=== PATIENT | male | born 1945 | race Caucasian/White ===

== ENCOUNTER → 2017-03-21 | Outpatient (CLI) | payer MEDICARE ==
[2017-03-21 09:08] LABS: Blood Urea Nitrogen 15 mg/dL (9-20); Non-African American GFR(MDRD) >60 (>60 ml/min/1.73 sqM)
--- NOTE | 2017-03-21 10:27 | CT ---
EXAMINATION TYPE: CT chest w con DATE OF EXAM: 03/21/2017 COMPARISON: NONE HISTORY: Abnormal findings of the lung field CT DLP: 441.00 mGycm, Automated exposure control for dose reduction was used. CONTRAST: Performed injected with 100 ml mL of Omnipaque 300. TECHNIQUE: Axial images were obtained at 5 mm thick sections. Reconstructed images are reviewed on [employer] computer in the coronal plane. FINDINGS: Portion of the thyroid visualized is normal. There is some minimal infiltrate is along the posterior medial right lung base and along the left adeline phragm most likely on the basis of atelectasis. 0.9 cm nodule may be within the posterior medial righ t lung base. Series 3 image 25 lung windows. No enhancement is evident. No enlarged mediastinal or hilar adenopathy is evident. The ascending aorta diameter at the level o f the main pulmonary artery is 3.3 cm. The main pulmonary artery diameter at the bifurcation is 2.[address] sections are obtained through the upper abdomen. There is elevation of the left diaphragm, this could be related to hernia. There is a peripherally enhancing hypodensity within the posterior right upper lobe liver. Series 3 image 53. This could represent a hemangioma. Couple of small hypoden sities are within the superior right lobe liver could be small hepatic cysts. IMPRESSIONS: 1. Hypodense nodule measuring 0.9 cm posterior medial right mid lung. 2. Mild infiltrates at the lung bases most likely on the basis of atelectasis. 3. Suspected herniation into the posterior lateral left lung base. 4. Previously reported hemangioma posterior lateral right upper lobe liver
== END | disposition home or self-care (01) ==
LOC: RADCTMAIN 08:31
PROVIDERS: ATTEND Family Medicine
DX: R91.8 Other nonspecific abnormal finding of lung field (principal); R91.1 Solitary pulmonary nodule
CPT/HCPCS: 82565; 84520; 71260; 36415; Q9967

== ENCOUNTER → 2017-04-24 | Outpatient (CLI) | payer MEDICARE ==
--- NOTE | 2017-04-24 15:09 | MR ---
EXAMINATION TYPE: MR abdomen wo/w con DATE OF EXAM: 04/24/2017 COMPARISON: CT abdomen dated 07/08/2016 HISTORY: abn ct, hepatic hemangioma CONTRAST: Standard multiplanar, multisequence MRI departmental protocol utilizing 15 mL intravenous MultiHance gadolinium contrast. FINDINGS: There is no signal dropout between in phase and out of phase imaging within the hepatic parenchyma. W ithin segment 7 of the liver there is a lobulated T2 hyperintense and T1 hypointense 2.2 x 2.2 x 2.5 cm mass as well as 2 smaller lesions within segment 8 that are T2 hyperintense and T1 hypointense heidi suring 7 mm and 8 mm on series 501 image 38 and 37 respectively. The larger 2.5 cm lesion demonstrate s peripheral nodular discontinuous centripetal enhancement compatible with a benign hemangioma and th e 2 smaller lesions demonstrate no enhancement compatible with benign hepatic cysts. There is chronic left hemidiaphragm elevation and left basilar subsegmental atelectasis noted. Intrat horacic stomach is again noted from a large hiatal hernia. A small splenule is seen adjacent to the n ative spleen. Incidentally noted are punctate T2 hyperintense and T1 hypointense nonenhancing bilater al cortical renal cysts and nonspecific mild bilateral perinephric fat stranding. The renal calculi n oted on the prior exam are better seen on CT. There is no evidence of lymphadenopathy. The adrenal glands and pancreas are unremarkable. Abdominal aorta is of normal course and caliber. Note is made of multiple vertebral body hemangiomas and a mild levoconvex scoliotic curvature of the lumbar spine which may be positional in nature. IMPRESSION: 1. Benign hepatic lesions. Single 2.2 cm hepatic hemangioma and subcentimeter hepatic cysts. 2. Incidentally noted bilateral subcentimeter cortical renal cysts. 3. Benign vertebral body hemangiomas.
== END | disposition home or self-care (01) ==
LOC: RADMRIMAIN 12:57
PROVIDERS: ATTEND Internal Medicine Pulmonary Disease
DX: D18.03 Hemangioma of intra-abdominal structures (principal); K76.89 Other specified diseases of liver; N28.1 Cyst of kidney, acquired; D18.09 Hemangioma of other sites; R93.8 Abnormal findings on diagnostic imaging of other specified body structures
CPT/HCPCS: 74183; A9577

== ENCOUNTER → 2017-08-12 | Outpatient (CLI) | payer MEDICARE ==
--- NOTE | 2017-08-12 08:45 | CT ---
EXAMINATION TYPE: CT chest wo con DATE OF EXAM: 08/12/2017 COMPARISON: 03/21/2017 HISTORY: Pulmonary Nodule CT DLP: 401.3 mGycm. Automated Exposure Control for Dose Reduction was Utilized. TECHNIQUE: CT scan of the thorax is performed without IV contrast. FINDINGS: LUNGS: As described below there is compressive atelectasis at the left lung base secondary to a large hiatal hernia. Additionally similar to the prior exam at the distal aspect of a superior segment rig ht lower lobe pulmonary artery there is a 0.9 x 0.8 x 0.5 cm unchanged low-density solid perifissural pulmonary nodule with distal atelectasis (perifissural location is best demonstrated on series 6 [id number] [id number]). Minimal subsegmental atelectasis is again seen posterior medially within the right lower lobe . No dilated bronchus is seen leading to this nodule to indicate endobronchial obstruction and mucoid impaction. Continued surveillance is recommended. No interval growth from the prior. No new pulmona ry nodules or masses. MEDIASTINUM: Lack of IV contrast is noted to limit evaluation for mediastinal and especially hilar ad enopathy. There are no definitive greater than 1 cm hilar or mediastinal lymph nodes. No cardiomega ly or pericardial effusion is seen. Moderate calcific atheromatous changes are seen of the thoracic a martell. OTHER: Hypoattenuated hepatic lesions representing cysts and previously described hemangiomas are red emonstrated with a hemangioma measuring up to 2.5 cm similar to the prior exam although incompletely evaluated given the lack of intravenous contrast. Bilateral nonobstructing calculi measuring 7 mm in the left upper pole and 3 mm within the right mid to lower pole are unchanged. Largely intrathoracic stomach is again noted. There is also herniation of mesenteric fat through the diaphragmatic resultin g in compressive atelectasis at the left lung base. IMPRESSION: 1. Unchanged superior segment right lower lobe low-density perifissural pulmonary nodule, most likely representing a benign perifissural lymph node. Continued surveillance is recommended to establish lo ng term stability and benignity. CT thorax is recommended in one year. 2. Redemonstration of a benign hepatic hemangioma, benign hepatic cysts, large hiatal hernia. A left basilar subsegmental atelectasis, and bilateral nonobstructing renal calculi.
== END | disposition home or self-care (01) ==
LOC: RADCTMAIN 07:11
PROVIDERS: ATTEND Internal Medicine Pulmonary Disease
DX: J98.11 Atelectasis (principal); R91.1 Solitary pulmonary nodule
CPT/HCPCS: 71250

== ENCOUNTER → 2017-10-29 | Outpatient (CLI) | payer MEDICARE ==
[2017-10-29 17:37] LABS: Basophils # (A) 0.1 k/uL (0-0.2); Basophils % (A) 1 %; Eosinophils # (A) 0.3 k/uL (0-0.7); Eosinophils % (A) 3 %; HGB 14.9 gm/dL (13.0-17.5); Lymphocytes # (A) 2.2 k/uL (1.0-4.8); Lymphocytes % (A) 26 %; MCH 30.1 pg (25.0-35.0); MCHC 32.4 g/dL (31.0-37.0); MCV 92.8 fL (80.0-100.0); Mean Platelet Volume 8.6; Monocytes # (A) 0.5 k/uL (0-1.0); Monocytes % (A) 6 %; Neutrophils # (A) 5.2 k/uL (1.3-7.7); Neutrophils % (A) 61 %; Platelet Count 166 k/uL (150-450); RBC 4.96 m/uL (4.30-5.90); RDW 13.3 % (11.5-15.5); WBC 8.6 k/uL (3.8-10.6)
[2017-10-29 18:11] LABS: ALT 29 U/L (21-72); AST 21 U/L (17-59); Alkaline Phosphatase 66 U/L (38-126); Anion Gap 14 mmol/L; Blood Urea Nitrogen 18 mg/dL (9-20); Carbon Dioxide 24 mmol/L (22-30); Chloride 104 mmol/L (98-107); Glucose 107 mg/dL (74-99); Magnesium 1.9 mg/dL (1.6-2.3); Sodium 142 mmol/L (137-145); Total Bilirubin 0.3 mg/dL (0.2-1.3); Total Protein 6.5 g/dL (6.3-8.2)
== END | disposition home or self-care (01) ==
LOC: LABWHC1 17:04
PROVIDERS: ATTEND Internal Medicine Pulmonary Disease
DX: I47.2 Ventricular tachycardia (principal)
CPT/HCPCS: 36415; 80053; 83735; 84443; 85025

== ENCOUNTER → 2018-07-13 | Outpatient (CLI) | payer MEDICARE ==
--- NOTE | 2018-07-13 11:09 | CT ---
EXAMINATION TYPE: CT chest wo con DATE OF EXAM: 07/13/2018 COMPARISON: 08/12/2017 HISTORY: F/u on pulmonary nodule. Sx hernia, renal stones. CT DLP: 675 mGycm. Automated Exposure Control for Dose Reduction was Utilized. TECHNIQUE: CT scan of the thorax is performed without IV contrast. FINDINGS: LUNGS: There is an approximately 8 x 8 mm right sided pulmonary nodule within the interlobar fissure. Therefore this could represent a true pulmonary nodule or intrafissural lymph node. Focal fibrotic c hanges are seen of the medial right lower lobe and within the left lower lobe is subsegmental atelect asis. There is no pleural effusion or pneumothorax seen. The tracheobronchial tree is patent. MEDIASTINUM: Lack of IV contrast is noted to limit evaluation for mediastinal and especially hilar ad enopathy. There are no definitive greater than 1 cm hilar or mediastinal lymph nodes. There are few prominent but nonenlarged right axillary lymph nodes measuring up to 8 mm in short axis. No cardiome uche or pericardial effusion is seen. Severe coronary artery calcifications are seen within the left anterior descending coronary artery. OTHER: There is an intrathoracic stomach with a large wide necked diaphragmatic defect measuring appr oximately 4.1 cm. Hernia contains nearly the entirety of the stomach as well as portions of the trans verse colon and mesenteric vasculature/fat. There is a 1.0 cm nonobstructing left upper pole renal calculus. Gallbladder is elongated measuring 7 .8 cm. Within segment 6 there is an at least 2.5 x 2.3 cm solid-appearing hepatic lesion. Additional scatter ed hypoattenuated hepatic lesion 5 other smaller hypoattenuated hepatic lesions are seen that are sub centimeter. These appear similar in comparison to the prior of 08/12/2017. These are demonstrated to be benign cysts and a hemangioma on the prior MRI dated 04/24/2017. IMPRESSION: 1. Again there is stability of the low-density probable pulmonary nodule likely representing a. Fissu ral/intrafissural lymph node. 2. Intrathoracic stomach and paraesophageal large hernia containing large bowel, mesenteric fat, and mesenteric vasculature.
== END | disposition home or self-care (01) ==
LOC: RADCTMAIN 09:31
PROVIDERS: ATTEND Internal Medicine Pulmonary Disease
DX: J98.4 Other disorders of lung (principal)
CPT/HCPCS: 71250

== ENCOUNTER → 2019-11-17 | Outpatient (CLI) | payer MEDICARE ==
--- NOTE | 2019-11-17 14:46 | US ---
EXAMINATION TYPE: US thyroid st tissue head/neck DATE OF EXAM: 11/17/2019 COMPARISON: NONE CLINICAL HISTORY: R59.0 enlarged Lymph Nodes. Enlarged lymph node per patient, recently was on antibi otics At area of palpable is the patients submandibular gland = 3.1 x 3.1 x 1.4cm Lymph node just inferior to submandibular gland = 2.3 x 1.2 x 0.6cm, fatty hilum seen IMPRESSION: Normal-appearing right submandibular gland. There is also an adjacent normal-appearing l ymph node. Correlate clinically and if felt to be indicated CT of the neck could be obtained.
[2019-11-17 15:53] LABS: Basophils % (A) 0 %; Eosinophils # (A) 0.1 k/uL (0-0.7); Eosinophils % (A) 2 %; HCT 48.3 % (39.0-53.0); HGB 15.4 gm/dL (13.0-17.5); Lymphocytes # (A) 3.3 k/uL (1.0-4.8); Lymphocytes % (A) 36 %; MCH 29.7 pg (25.0-35.0); Mean Platelet Volume 8.8; Monocytes # (A) 0.4 k/uL (0-1.0); Monocytes % (A) 5 %; Neutrophils # (A) 4.8 k/uL (1.3-7.7); Neutrophils % (A) 54 %; Platelet Count 185 k/uL (150-450); RBC 5.19 m/uL (4.30-5.90)
[2019-11-17 15:55] LABS: ALT 17 U/L (4-49); AST 23 U/L (17-59); African American GFR (CKD) >90 (>60 ml/min/1.73 sqM); Albumin 4.3 g/dL (3.5-5.0); Alkaline Phosphatase 43 U/L (38-126); Anion Gap 8 mmol/L; Blood Urea Nitrogen 16 mg/dL (9-20); Calcium 8.6 mg/dL (8.4-10.2); Carbon Dioxide 25 mmol/L (22-30); Chloride 105 mmol/L (98-107); Glucose 91 mg/dL (74-99); Non-African American GFR(CKD) 85 (>60 ml/min/1.73 sqM); Potassium 4.9 mmol/L (3.5-5.1); Sodium 138 mmol/L (137-145); Total Bilirubin 0.5 mg/dL (0.2-1.3); Total Protein 6.7 g/dL (6.3-8.2)
[2019-11-17 23:43] LABS: Ferritin 258.6 ng/mL (22.0-322.0)
== END | disposition home or self-care (01) ==
LOC: RADUSMAIN 14:08
PROVIDERS: ATTEND Nurse Practitioner
DX: R59.0 Localized enlarged lymph nodes (principal); R53.83 Other fatigue
CPT/HCPCS: 76536; 80053; 82728; 85025

== ENCOUNTER 2021-07-07 12:14 | Observation (INO) | payer MEDICARE ==
--- NOTE | 2021-07-07 13:18 | ED ---
General Adult HPI - General Chief complaint: Urogenital Stated complaint: Kidney stones Time Seen by Provider: 07/07/21 13:17 Source: patient, family Mode of arrival: ambulatory Limitations: no limitations - History of Present Illness Initial comments: Patient presents to the ED with his for evaluation. Patient states that he has had left flank pain radiating to the left side of his abdomen and hematuria for the past 3 days or so. Patient states that he has had associated nausea as well, but he denies vomiting. Patient states that he has a history of renal stones. Patient's states the patient has an appointment scheduled to see a urologist, but it is not until 07/20. Patient's states that she took the patient to see his primary care provider yesterday, and he was given a shot of pain medication, but it wore off overnight, and the patient's pain has returned. Patient denies trauma or injury, fever or chills, headache, focal neuro deficit, chest pain or pressure, dyspnea, cough or cold symptoms, palpitations, dizziness, vomiting, diarrhea or constipation, bloody or melanotic stool, dysuria or urinary frequency, leg pain, or any other symptoms or complaints. Patient states that his pain is currently 9/10 in severity. - Related Data Home Medications Medication Instructions Recorded Confirmed Hyoscyamine Sulfate [Levsin] 0.125 mg PO ONCE PRN 07/09/16 07/26/16 Loperamide HCl [Imodium A-D] 2 mg PO ONCE PRN 07/09/16 07/26/16 Loperamide [Imodium] 4 mg PO ONCE 07/09/16 07/26/16 Simvastatin [Zocor] 40 mg PO HS 07/09/16 07/26/16 Ubiquinol [Co-Veratrol] 100 mg PO DAILY 07/09/16 07/26/16 atenoloL [Tenormin] 25 mg PO DAILY 07/09/16 07/26/16 Ciprofloxacin HCl [Cipro] 500 mg PO Q12HR 07/26/16 07/26/16 Allergies Allergy/AdvReac Type Severity Reaction Status Date / Time No Known Allergies Allergy Verified 07/07/21 12:29 Review of Systems ROS Statement: Those systems with pertinent positive or pertinent negative responses have been documented in the HPI. ROS Other: All systems not noted in ROS Statement are negative. Past Medical History Past Medical History: Hypertension, Renal Disease Additional Past Medical History / Comment(s): kidney stones, History of Any Multi-Drug Resistant Organisms: None Reported Past Surgical History: Back Surgery, Hernia Repair, Orthopedic Surgery, Tonsillectomy Additional Past Surgical History / Comment(s): bilateral renal stent palcement and removal Past Psychological History: No Psychological Hx Reported Smoking Status: Never smoker Past Alcohol Use History: None Reported Past Drug Use History: None Reported General Exam Limitations: no limitations General appearance: alert, in no apparent distress Head exam: Present: atraumatic, normocephalic Eye exam: Present: normal appearance, EOMI ENT exam: Present: mucous membranes moist Neck exam: Present: other (Trachea is in midline) Respiratory exam: Present: normal lung sounds bilaterally. Absent: respiratory distress, wheezes, rales, rhonchi, stridor Cardiovascular Exam: Present: regular rate, normal rhythm, normal heart sounds, other (Normal radial pulses bilaterally) GI/Abdominal exam: Present: soft. Absent: distended, tenderness, guarding Extremities exam: Absent: tenderness, pedal edema, calf tenderness Back exam: Absent: CVA tenderness (R), CVA tenderness (L) Neurological exam: Present: alert, oriented X3. Absent: motor sensory deficit Psychiatric exam: Present: normal affect, normal mood Skin exam: Present: warm, dry, intact, normal color Course Vital Signs 07/07/21 12:26 Temperature 98.7 F Pulse Rate 75 Respiratory 18 Rate Blood Pressure 154/8 O2 Sat by Pulse 95 Oximetry - Reevaluation(s) Reevaluation #1: 07/07/21 14:28 Case, H&P, test results and ED management thus far were discussed with Dr. Hummel (urology). He he recommends/accepts hospital admission. He asks to make the patient NPO after midnight. He has no further recommendations at this time. 07/07/21 14:34 Patient states that his pain as "a lot better" now. Patient denies development of any new symptoms while in the ED. Patient and are aware of the patient's test results and my discussion with Dr. Hummel as above. Patient agrees with hospital admission at this time. Medical Decision Making - Medical Decision Making Patient has symptomatic left ureteral stones seen on CT. Given the large size of the patient's stones, Dr. Hummel has recommended/accepted hospital admission for management of the patient's stones. Patient agrees with hospital admission. Patient's UA does not appear infected. Patient is afebrile. - Lab Data Result diagrams: 07/07/21 13:35 07/07/21 13:35 Lab Results 07/07/21 07/07/21 07/07/21 Range/Units 13:00 13:35 13:35 WBC 14.8 H (3.8-10.6) k/uL RBC 4.67 (4.30-5.90) m/uL Hgb 14.0 (13.0-17.5) gm/dL Hct 42.9 (39.0-53.0) % MCV 91.8 (80.0-100.0) fL MCH 29.9 (25.0-35.0) pg MCHC 32.6 (31.0-37.0) g/dL RDW 13.0 (11.5-15.5) % Plt Count 140 L (150-450) k/uL MPV 8.7 Neutrophils % 73 % Lymphocytes % 19 % Monocytes % 5 % Eosinophils % 1 % Basophils % 0 % Neutrophils # 10.7 H (1.3-7.7) k/uL Lymphocytes # 2.8 (1.0-4.8) k/uL Monocytes # 0.8 (0-1.0) k/uL Eosinophils # 0.1 (0-0.7) k/uL Basophils # 0.1 (0-0.2) k/uL Sodium 134 L (137-145) mmol/L Potassium 4.5 (3.5-5.1) mmol/L Chloride 103 (98-107) mmol/L Carbon Dioxide 21 L (22-30) mmol/L Anion Gap 10 mmol/L BUN 24 H (9-20) mg/dL Creatinine 1.42 H (0.66-1.25) mg/dL Est GFR (CKD-EPI)AfAm 56 (>60 ml/min/1.73 sqM) Est GFR (CKD-EPI)NonAf 48 (>60 ml/min/1.73 sqM) Glucose 114 H (74-99) mg/dL Calcium 8.9 (8.4-10.2) mg/dL Total Bilirubin 0.8 (0.2-1.3) mg/dL AST 23 (17-59) U/L ALT 13 (4-49) U/L Alkaline Phosphatase 61 (38-126) U/L Total Protein 6.4 (6.3-8.2) g/dL Albumin 3.9 (3.5-5.0) g/dL Lipase 110 (23-300) U/L Urine Color Yellow Urine Appearance Clear (Clear) Urine pH 5.0 (5.0-8.0) Ur Specific [place] 1.010 (1.001-1.035) Urine Protein Negative (Negative) Urine Glucose (UA) Negative (Negative) Urine Ketones Negative (Negative) Urine Blood Trace H (Negative) Urine Nitrite Negative (Negative) Urine Bilirubin Negative (Negative) Urine Urobilinogen <2.0 (<2.0) mg/dL Ur Leukocyte Esterase Trace H (Negative) Urine RBC <1 (0-5) /hpf Urine WBC 3 (0-5) /hpf Ur Squamous Epith Cells <1 (0-4) /hpf Hyaline Casts 1 (0-2) /lpf - Radiology Data CT abdomen/pelvis without contrast: 1. There is a 12 mm calculus in the proximal left ureter at the left UPJ resulting in marked hydronephrosis. 2. A second 9.3 mm calculus is seen in the proximal left ureter as well. 3. There is a 17 mm calculus in the urinary bladder. 4. Large hiatal hernia with intrathoracic stomach. 5. Marked prostatic hypertrophy. Disposition Clinical Impression: Ureterolithiasis, Hydronephrosis Disposition: ADMITTED IP TO THIS [facility] Condition: Stable Is patient prescribed a controlled substance at d/c from ED?: No Referrals: Jose Tuttle DO [Primary Care Provider] - 1-2 days Time of Disposition: 14:29
[2021-07-07] MEDS ORDERED: HYDROmorphone 1 MG/ML 1 ML SYRINGE IVP STA (13:23)
[2021-07-07] MEDS ORDERED: ONDANSETRON 4 MG/2 ML VIAL IVP STA (13:23)
[2021-07-07] MEDS ORDERED: SODIUM CHLORIDE 0.9% 500 ML 500 ML IV STA (13:23)
[2021-07-07 13:43] LABS: Basophils # (A) 0.1 k/uL (0-0.2); Basophils % (A) 0 %; Eosinophils # (A) 0.1 k/uL (0-0.7); Eosinophils % (A) 1 %; HCT 42.9 % (39.0-53.0); Lymphocytes # (A) 2.8 k/uL (1.0-4.8); Lymphocytes % (A) 19 %; MCH 29.9 pg (25.0-35.0); MCHC 32.6 g/dL (31.0-37.0); MCV 91.8 fL (80.0-100.0); Mean Platelet Volume 8.7; Monocytes # (A) 0.8 k/uL (0-1.0); Monocytes % (A) 5 %; Neutrophils # (A) 10.7 k/uL (1.3-7.7); Neutrophils % (A) 73 %; Platelet Count 140 k/uL (150-450); RBC 4.67 m/uL (4.30-5.90); WBC 14.8 k/uL (3.8-10.6)
[2021-07-07 14:01] LABS: Albumin 3.9 g/dL (3.5-5.0); Calcium 8.9 mg/dL (8.4-10.2); Potassium 4.5 mmol/L (3.5-5.1); Total Bilirubin 0.8 mg/dL (0.2-1.3); Total Protein 6.4 g/dL (6.3-8.2)
--- NOTE | 2021-07-07 14:04 | CT ---
EXAMINATION TYPE: CT abdomen pelvis wo con DATE OF EXAM: 07/07/2021 COMPARISON: 07/08/2016 HISTORY: Lt flank pain CT DLP: 710 mGycm Automated exposure control for dose reduction was used. TECHNIQUE: Helical acquisition of images was performed from the lung bases through the pelvis. FINDINGS: As noted previously there is an intrathoracic stomach secondary to large hiatal hernia. There is mild bibasilar atelectasis. The gallbladder is normal and there is no biliary ductal dilatation. There few scattered tiny simple hepatic cysts or hemangiomas. The bowel loops are normal in caliber and there is no evidence of obstruction. There is no free intra peritoneal air or fluid. There is a 12 mm calculus in the proximal left ureter at the left UPJ resulting in marked hydronephro sis. A second 9.3 mm calculus is seen in the proximal left ureter as well. There is a 17 mm calcific ation in the urinary bladder. There is prostatic hypertrophy. There is no right renal calculus or hydronephrosis. Caliber of the abdominal aorta is normal and there is no evidence of retroperitoneal adenopathy or he morrhage. There is no organomegaly involving the liver, pancreas, spleen or adrenal glands. There is no pelvic adenopathy. There is marked diverticulosis of the colon without evidence of divert iculitis. The osseous structures are intact.. IMPRESSION: 1. Marked left-sided hydronephrosis secondary to proximal ureteral calcifications as described above. 2. Large urinary bladder calcification. 3. Resolution of the previous right renal and ureteral calcifications. 4. Large hiatal hernia with intrathoracic stomach. 5. Marked prostatic hypertrophy.
[2021-07-07 14:21] LABS: Appearance,Urine Clear (Clear); Bilirubin,Urine Negative (Negative); Blood,Urine Trace (Negative); Color,Urine Yellow; Glucose,Urine (UA) Negative (Negative); Hyaline Casts,Urine 1 /lpf (0-2); Ketones,Urine Negative (Negative); Leukocyte Esterase,Urine Trace (Negative); Nitrite,Urine Negative (Negative); Protein,Urine Negative (Negative); RBC,Urine <1 /hpf (0-5); Squamous Epithelial Cell,Urine <1 /hpf (0-4); Urobilinogen,Urine <2.0 mg/dL (<2.0); WBC,Urine 3 /hpf (0-5)
[2021-07-07] MEDS ORDERED: ONDANSETRON 4 MG/2 ML VIAL IVP PRN (14:29)
[2021-07-07] MEDS ORDERED: NALOXONE 0.4 MG/ML 1 ML VIAL IV PRN (14:29)
--- NOTE | 2021-07-07 17:33 | P.GSHP ---
History of Present Illness H&P Date: 07/07/21 Chief Complaint: Flank pain This is a 76-year-old male with history of recurrent kidney stones. He presented to the ED with left-sided flank pain. He underwent a CT that showed evidence of 2 ureteral stones, 1 measured 1.2 cm and another stone measured 1 cm both in the proximal ureter, causing hydronephrosis. The CT also showed evidence of a 1.7 cm bladder stone. Patient was having significant pain secondary to his stones. Of note he has history of recurrent kidney stones, previously treated with ureteroscopy and ESWL, he was previously following up with Dr. Hector. He denies any fevers/chills, denies any nausea or vomiting. In the ED his pain has improved, but still having left flank pain - Constitutional Constitutional: Denies chills, Denies fever - Cardiovascular Cardiovascular: Denies chest pain, Denies shortness of breath - Respiratory Respiratory: Denies cough, Denies 7 - Gastrointestinal Gastrointestinal: Reports abdominal pain - Genitourinary (Female) Genitourinary: Reports flank pain, Reports hematuria, Reports kidney stones, Denies dysuria - Musculoskeletal Musculoskeletal: Denies myalgias - Integumentary Integumentary: Denies pruritus, Denies rash Past Medical History Past Medical History: Hypertension, Renal Disease Additional Past Medical History / Comment(s): kidney stones, History of Any Multi-Drug Resistant Organisms: None Reported Past Surgical History: Back Surgery, Hernia Repair, Orthopedic Surgery, Tonsillectomy Additional Past Surgical History / Comment(s): bilateral renal stent palcement and removal Past Psychological History: No Psychological Hx Reported Smoking Status: Never smoker Past Alcohol Use History: None Reported Past Drug Use History: None Reported Medications and Allergies Home Medications Medication Instructions Recorded Confirmed Type Simvastatin [Zocor] 40 mg PO HS 07/09/16 07/07/21 History atenoloL [Tenormin] 25 mg PO DAILY 07/09/16 07/07/21 History Brimonidine Tartrate [Alphagan P 1 drop LEFT EYE DAILY 07/07/21 07/07/21 History 0.2% Ophth Soln] Latanoprost/Pf [Latanoprost 0.005% 1 drop BOTH EYES DAILY 07/07/21 07/07/21 History Eye Drop] Nitrofurantoin Monohyd/M-Cryst 100 mg PO BID 07/07/21 07/07/21 History [Macrobid] Tamsulosin [Flomax] 0.4 mg PO DAILY 07/07/21 07/07/21 History Allergies Allergy/AdvReac Type Severity Reaction Status Date / Time milk AdvReac Nausea & Verified 07/07/21 14:38 Vomiting & Diarrhea Surgical - Exam Vital Signs Temp Pulse Resp BP Pulse Ox 98.7 F 75 18 154/8 95 07/07/21 12:26 07/07/21 12:26 07/07/21 12:26 07/07/21 12:26 07/07/21 12:26 - General well developed, well nourished, no distress, moderate pain - Eyes PERRL, normal ocular movement - ENT normal nares, normal mucosa - Respiratory normal expansion, normal respiratory effort - Abdomen Abdomen: soft, non tender - Psychiatric oriented to time, oriented to person, oriented to place Results - Labs 07/07/21 13:35 07/07/21 13:35 Abnormal Lab Results - Last 24 Hours (Table) 07/07/21 07/07/21 07/07/21 Range/Units 13:00 13:35 13:35 WBC 14.8 H (3.8-10.6) k/uL Plt Count 140 L (150-450) k/uL Neutrophils # 10.7 H (1.3-7.7) k/uL Sodium 134 L (137-145) mmol/L Carbon Dioxide 21 L (22-30) mmol/L BUN 24 H (9-20) mg/dL Creatinine 1.42 H (0.66-1.25) mg/dL Glucose 114 H (74-99) mg/dL Urine Blood Trace H (Negative) Ur Leukocyte Esterase Trace H (Negative) Diabetes panel 07/07/21 Range/Units 13:35 Sodium 134 L (137-145) mmol/L Potassium 4.5 (3.5-5.1) mmol/L Chloride 103 (98-107) mmol/L Carbon Dioxide 21 L (22-30) mmol/L BUN 24 H (9-20) mg/dL Creatinine 1.42 H (0.66-1.25) mg/dL Glucose 114 H (74-99) mg/dL Calcium 8.9 (8.4-10.2) mg/dL AST 23 (17-59) U/L ALT 13 (4-49) U/L Alkaline Phosphatase 61 (38-126) U/L Total Protein 6.4 (6.3-8.2) g/dL Albumin 3.9 (3.5-5.0) g/dL Calcium panel 07/07/21 Range/Units 13:35 Calcium 8.9 (8.4-10.2) mg/dL Albumin 3.9 (3.5-5.0) g/dL Pituitary panel 07/07/21 Range/Units 13:35 Sodium 134 L (137-145) mmol/L Potassium 4.5 (3.5-5.1) mmol/L Chloride 103 (98-107) mmol/L Carbon Dioxide 21 L (22-30) mmol/L BUN 24 H (9-20) mg/dL Creatinine 1.42 H (0.66-1.25) mg/dL Glucose 114 H (74-99) mg/dL Calcium 8.9 (8.4-10.2) mg/dL Adrenal panel 07/07/21 Range/Units 13:35 Sodium 134 L (137-145) mmol/L Potassium 4.5 (3.5-5.1) mmol/L Chloride 103 (98-107) mmol/L Carbon Dioxide 21 L (22-30) mmol/L BUN 24 H (9-20) mg/dL Creatinine 1.42 H (0.66-1.25) mg/dL Glucose 114 H (74-99) mg/dL Calcium 8.9 (8.4-10.2) mg/dL Total Bilirubin 0.8 (0.2-1.3) mg/dL AST 23 (17-59) U/L ALT 13 (4-49) U/L Alkaline Phosphatase 61 (38-126) U/L Total Protein 6.4 (6.3-8.2) g/dL Albumin 3.9 (3.5-5.0) g/dL Assessment and Plan Assessment: 76-year-old male with history of 2 left-sided proximal ureteral stones on the left side, he is symptomatic from his stone, CT also showed a large bladder stone. discussed we'll proceed with left-sided stent placement, and we'll set him up for left-sided ureteroscopy and a cystoitholapaxy in the future. Discussed with him the risk and benefit of the procedure. He understood all the risk and agreed to proceed -NPO past MN -Or for left-sided ureteral stent placement tomorrow
[2021-07-07] MEDS: HYDROmorphone 0.5 MG/0.5 ML SYRINGE IVP PRN ×2 (18:23→21:21)
[2021-07-07] MEDS: SODIUM CHLORIDE 0.9% 1,000 ML IV SCH (18:23)
[2021-07-07 19:51] VITALS: RESP 16
[2021-07-07] MEDS ORDERED: ATORVASTATIN 20 MG TAB PO SCH (21:00)
[2021-07-07] MEDS: NITROFURANTOIN MONOHYD/M-CRYST 100 MG CAP PO SCH (21:20)
[2021-07-08] MEDS: HYDROmorphone 0.5 MG/0.5 ML SYRINGE IVP PRN ×3 (00:22→06:47)
[2021-07-08] MEDS: SODIUM CHLORIDE 0.9% 1,000 ML IV SCH (06:18)
[2021-07-08] MEDS: NITROFURANTOIN MONOHYD/M-CRYST 100 MG CAP PO SCH (07:43)
[2021-07-08] MEDS ORDERED: atenoloL 25 MG TAB PO SCH (09:00)
[2021-07-08] MEDS ORDERED: TAMSULOSIN 0.4 MG CAP.ER.24H PO SCH (09:00)
[2021-07-08] MEDS ORDERED: BRIMONIDINE TARTRATE 0.2% DROPS 5 ML BTL LEFT EYE SCH (09:00)
[2021-07-08] MEDS ORDERED: LATANOPROST 0.005% OPHTH DROPS 2.5 ML BTL BOTH EYES SCH (09:00)
[2021-07-08] MEDS ORDERED: SODIUM CHLORIDE 0.9% 100 ML BAG ONE (10:22)
[2021-07-08] MEDS ORDERED: LIDOCAINE 1% INJ 10MG/ML (20 ML MDV) ONE (10:22)
[2021-07-08] MEDS ORDERED: PROPOFOL 10 MG/ML 20 ML VIAL IV ONE (10:22)
[2021-07-08] MEDS ORDERED: fentaNYL (PF) 50 MCG/ML 2 ML AMP ONE (10:22)
[2021-07-08] MEDS ORDERED: ONDANSETRON 4 MG/2 ML VIAL ONE (10:22)
[2021-07-08] MEDS ORDERED: LACTATED RINGERS 1,000 ML IV ONE (10:22)
[2021-07-08] MEDS ORDERED: ceFAZolin 1,000 MG VIAL ONE (10:22)
[2021-07-08] MEDS ORDERED: MIDAZOLAM 2 MG/2 ML VIAL ONE (10:22)
[2021-07-08] MEDS ORDERED: PHENYLEPHRINE-0.9% NACL SYG 1,000 MCG/10 ML SYRINGE ONE (10:22)
[2021-07-08] MEDS ORDERED: DEXAMETHASONE SOD PHOSPHATE 4 MG/ML 1 ML VIAL ONE (10:22)
[2021-07-08] MEDS ORDERED: IOPAMIDOL-370 50ML BTL MISCELLANE ONE (10:41)
[2021-07-08 11:07] VITALS: TEMP 98
[2021-07-08 11:14] LABS: Basophils # (A) 0.02 X 10*3/uL (0.00-0.10); Basophils % (A) 0.2 %; Eosinophils # (A) 0.12 X 10*3/uL (0.04-0.35); Eosinophils % (A) 1.1 %; HCT 39.2 % (39.6-50.0); HGB 12.6 g/dL (13.0-17.0); Lymphocytes # (A) 2.37 X 10*3/uL (0.90-5.00); Lymphocytes % (A) 21.6 %; MCH 29.9 pg (27.0-32.0); MCHC 32.1 g/dL (32.0-37.0); MCV 92.9 fL (80.0-97.0); Monocytes # (A) 1.02 X 10*3/uL (0.20-1.00); Monocytes % (A) 9.3 %; Neutrophils # (A) 7.41 X 10*3/uL (1.80-7.70); Neutrophils % (A) 67.3 %; Platelet Count 138 X 10*3/uL (140-440); RBC 4.22 X 10*6/uL (4.40-5.60); RDW 13.2 % (11.5-14.5); WBC 10.99 X 10*3/uL (4.50-10.00)
--- NOTE | 2021-07-08 11:14 | P.OP ---
Date of Procedure: 07/08/21 Preoperative Diagnosis: Left ureteral stone Postoperative Diagnosis: Same Procedure(s) Performed: Cystoscopy, left ureteral stent placement Implants: 6-Thai by 24 cm stent Anesthesia: SELINA Surgeon: Archie Hummel Estimated Blood Loss (ml): 1 Pathology: none sent Condition: stable Disposition: PACU Indications for Procedure: 76-year-old male with history of 2 left-sided proximal ureteral stones on the left side, he is symptomatic from his stone, CT also showed a large bladder stone. discussed we'll proceed with left-sided stent placement, and we'll set him up for left-sided ureteroscopy and a cystoitholapaxy in the future. Discussed with him the risk and benefit of the procedure. He understood all the risk and agreed to proceed Description of Procedure: Patient was brought to the operating room, general anesthesia was induced. She was prepped and draped in sterile fashion and placed in dorsal lithotomy position. A cystoscopy fitted with a 19-Thai sheath was inserted per urethra, the cystoscope was advanced through the urethra and into the bladder. 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 Cystoscopy was performed which showed a large bladder stone, an additional small stones within a diverticulum. Attention was then carried to the left ureteral orifice which was intubated with a sensor wire. The sensor wire was advanced into the kidney. Next ureteral stent was passed over the wire, the proximal curl was visualized on fluoroscopy and the distal curl was visualized using the cystoscope. The bladder was emptied at the end of the case. Patient tolerated the procedure well was taken to recovery in stable condition
--- NOTE | 2021-07-08 11:15 | P.DS ---
Providers Date of admission: 07/07/21 14:29 Attending physician: Archie Hummel MD [facility] Course: This is 76-year-old male with history of 2 left-sided proximal stone. He was admitted to the hospital on July 07. Patient was taken to the OR July 08 left-sided stent placement. Patient was discharged home following the surgery. At time of discharge he was tolerating a diet, ambulating, pain was well- controlled. He will follow-up in 2-3 weeks for left-sided ureteroscopy and cystolitholapaxy Patient Condition at Discharge: Stable Plan - Discharge Summary Discharge Rx Participant: No New Discharge Prescriptions: New Ketorolac [Toradol] 10 mg PO Q6HR PRN #10 tab PRN Reason: Pain No Action Simvastatin [Zocor] 40 mg PO HS atenoloL [Tenormin] 25 mg PO DAILY Nitrofurantoin Monohyd/M-Cryst [Macrobid] 100 mg PO BID Latanoprost/Pf [Latanoprost 0.005% Eye Drop] 1 drop BOTH EYES DAILY Tamsulosin [Flomax] 0.4 mg PO DAILY Brimonidine Tartrate [Alphagan P 0.2% Ophth Soln] 1 drop LEFT EYE DAILY Discharge Medication List Simvastatin [Zocor] 40 mg PO HS 07/09/16 [History] atenoloL [Tenormin] 25 mg PO DAILY 07/09/16 [History] Brimonidine Tartrate [Alphagan P 0.2% Ophth Soln] 1 drop LEFT EYE DAILY 07/07/21 [History] Latanoprost/Pf [Latanoprost 0.005% Eye Drop] 1 drop BOTH EYES DAILY 07/07/21 [History] Nitrofurantoin Monohyd/M-Cryst [Macrobid] 100 mg PO BID 07/07/21 [History] Tamsulosin [Flomax] 0.4 mg PO DAILY 07/07/21 [History] Ketorolac [Toradol] 10 mg PO Q6HR PRN #10 tab 07/08/21 [Rx] Follow up Appointment(s)/Referral(s): Jose Tuttle DO [Primary Care Provider] - 1-2 days Activity/Diet/Wound Care/Special Instructions: Increase fluid intake Is normal to see blood in the urine you will be contacted to arrange her surgery for stone removal Discharge Disposition: HOME SELF-CARE
[2021-07-08 11:37] LABS: African American GFR (CKD) 44.7 (60.0-200.0); Albumin 3.6 g/dL (3.8-4.9); Albumin/Globulin Ratio 2.18 (1.60-3.17); Anion Gap 13.7 mmol/L (4.00-12.00); BUN/Creat Ratio 13.35 Ratio (12.00-20.00); Blood Urea Nitrogen 22.7 mg/dL (9.0-27.0); Calcium 7.9 mg/dL (8.7-10.3); Carbon Dioxide 19.6 mmol/L (21.6-31.8); Globulin 1.6 g/dL (1.6-3.3); Non-African American GFR(CKD) 38.6 (60.0-200.0); Potassium 4.4 mmol/L (3.5-5.5); Total Bilirubin 0.7 mg/dL (0.30-1.20); Total Protein 5.2 g/dL (6.2-8.2)
[2021-07-08 15:09] VITALS: BP 123/76; PULSE 72
--- NOTE | 2021-07-10 08:02 | FL ---
EXAMINATION TYPE: FL guidance operating room DATE OF EXAM: 07/08/2021 FLUOROSCOPY Fluoroscopy time of 4 seconds was used during left ureteral stent placement. 1 image/s document/s th e procedure.
== END 2021-07-08 14:39 | disposition home or self-care (01) ==
LOC: EC 12:14 → 5NMEDONC 14:29 → INTOOBSV 14:29 → 4SSUR 17:20 → UNDODISIN 07-08 14:39
PROVIDERS: ADMIT Urology; ATTEND Urology
PROC: 0T778DZ Dilation of Left Ureter with Intraluminal Device, Via Natural or Artificial Opening Endoscopic (ICD-10-PCS; principal; 2021-07-08 15:30)
DX: N13.2 Hydronephrosis with renal and ureteral calculous obstruction (principal); I10 Essential (primary) hypertension; N21.0 Calculus in bladder; Z20.822 Contact with and (suspected) exposure to COVID-19; N32.3 Diverticulum of bladder; N40.0 Benign prostatic hyperplasia without lower urinary tract symptoms; E78.5 Hyperlipidemia, unspecified; K44.9 Diaphragmatic hernia without obstruction or gangrene; Z79.899 Other long term (current) drug therapy; Z91.011 Allergy to milk products; Z87.442 Personal history of urinary calculi
CPT/HCPCS: 52332; 96376; 96361 ×3; 96374; 96375; 99285; 36415; 80053 ×2; 83690; 85025 ×2; 81001; 87635; 74176; G0378 ×2; C2625; C1758; C1769; J2250; J1100; J2405 ×2; J0690; J2001; J3010; J1170 ×3; J2370; J2704; Q9967

== ENCOUNTER → 2021-07-23 | Outpatient (CLI) | payer MEDICARE ==
[2021-07-23 13:07] LABS: Basophils % (A) 0 %; Eosinophils # (A) 0.3 k/uL (0-0.7); Eosinophils % (A) 3 %; HCT 43.7 % (39.0-53.0); HGB 14.1 gm/dL (13.0-17.5); Lymphocytes # (A) 3.6 k/uL (1.0-4.8); Lymphocytes % (A) 36 %; MCH 30.3 pg (25.0-35.0); MCHC 32.2 g/dL (31.0-37.0); MCV 94.2 fL (80.0-100.0); Mean Platelet Volume 8.7; Monocytes # (A) 0.5 k/uL (0-1.0); Monocytes % (A) 5 %; Neutrophils # (A) 5.4 k/uL (1.3-7.7); Neutrophils % (A) 53 %; Platelet Count 168 k/uL (150-450); RBC 4.64 m/uL (4.30-5.90); RDW 13.3 % (11.5-15.5); WBC 10.1 k/uL (3.8-10.6)
[2021-07-23 13:25] LABS: African American GFR (CKD) >90 (>60 ml/min/1.73 sqM); Anion Gap 7 mmol/L; Blood Urea Nitrogen 18 mg/dL (9-20); Calcium 8.6 mg/dL (8.4-10.2); Carbon Dioxide 25 mmol/L (22-30); Chloride 107 mmol/L (98-107); Glucose 101 mg/dL (74-99); Non-African American GFR(CKD) 78 (>60 ml/min/1.73 sqM); Potassium 4.3 mmol/L (3.5-5.1); Sodium 139 mmol/L (137-145)
[2021-07-23 13:26] LABS: Appearance,Urine Cloudy (Clear); Bilirubin,Urine Negative (Negative); Blood,Urine Large (Negative); Color,Urine Yellow; Glucose,Urine (UA) Negative (Negative); Hyaline Casts,Urine 3 /lpf (0-2); Ketones,Urine Negative (Negative); Leukocyte Esterase,Urine Small (Negative); Mucus,Urine Few /hpf; Nitrite,Urine Negative (Negative); PH, Urine 5.5 (5.0-8.0); Protein,Urine 1+ (Negative); RBC,Urine >182 /hpf (0-5); Specific Gravity,Urine 1.022 (1.001-1.035); Urobilinogen,Urine <2.0 mg/dL (<2.0); WBC,Urine 14 /hpf (0-5)
== END | disposition home or self-care (01) ==
LOC: PAT 11:18
PROVIDERS: ATTEND Urology
DX: Z01.812 Encounter for preprocedural laboratory examination (principal); N20.1 Calculus of ureter; N21.9 Calculus of lower urinary tract, unspecified
CPT/HCPCS: 36415; 80048; 81001; 85025; 87086

== ENCOUNTER 2021-07-30 05:55 | Day surgery (SDC) | payer MEDICARE ==
[2021-07-25 14:02] VITALS: BMI 26.2
--- NOTE | 2021-07-29 21:05 | P.HPIHPCON ---
History of Present Illness This 76-year-old male with history of 2 left-sided proximal ureteral stones on the left side, He underwent left sided stent placement on 07/10, CT also showed a large bladder stone. He presents today for left-sided ureteroscopy and a cystoitholapaxy Discussed with him the risk and benefit of the procedure. He understood all the risk and agreed to proceed Consent for Procedure: I have explained the operation/procedure to the patient, including the risks, benefits, side effects, alternative therapies (including not receiving the proposed treatment or service), the likelihood of the patient achieving his/her goals, and potential recuperation problems for the procedure/sedation/analgesia, as well as any blood products, if indicated. I also explained to the patient the risks, benefits and side effects of the alternatives, as well as the risks related to not receiving the proposed procedure, care, treatment, or services. Past Medical History Past Medical History: Hypertension, Sleep Apnea/CPAP/BIPAP Additional Past Medical History / Comment(s): kidney stones, uses C-pap machine, back surgery. History of Any Multi-Drug Resistant Organisms: None Reported Past Surgical History: Back Surgery, Hernia Repair, Orthopedic Surgery, Tonsillectomy Additional Past Surgical History / Comment(s): bilateral renal stent placement and removal, bilat wrist reconstruction, carpal tunnel release, cystoscopy with ureteral stent (07/08/21). Past Anesthesia/Blood Transfusion Reactions: No Reported Reaction Past Psychological History: No Psychological Hx Reported Smoking Status: Never smoker Past Alcohol Use History: None Reported Past Drug Use History: None Reported - Past Family History Father Family Medical History: CVA/TIA Medications and Allergies Home Medications Medication Instructions Recorded Confirmed Type Simvastatin [Zocor] 40 mg PO HS 07/09/16 07/25/21 History atenoloL [Tenormin] 25 mg PO DAILY 07/09/16 07/25/21 History Brimonidine Tartrate [Alphagan P 1 drop LEFT EYE DAILY 07/07/21 07/25/21 History 0.2% Ophth Soln] Latanoprost/Pf [Latanoprost 0.005% 1 drop BOTH EYES DAILY 07/07/21 07/25/21 History Eye Drop] Tamsulosin [Flomax] 0.4 mg PO W/SUPPER 07/07/21 07/25/21 History Ketorolac [Toradol] 10 mg PO Q6HR PRN #10 tab 07/08/21 07/25/21 Rx Cranberry Fruit Extract [Cranberry] 8,400 mg PO DAILY 07/25/21 07/25/21 History Loratadine [Claritin] 10 mg PO DAILY 07/25/21 07/25/21 History Tart Ochoa 425 mg PO DAILY 07/25/21 History Ubiquinol [Co-Veratrol] 50 mg PO DAILY 07/25/21 07/25/21 History Allergies Allergy/AdvReac Type Severity Reaction Status Date / Time milk AdvReac Nausea & Verified 07/25/21 13:42 Vomiting & Diarrhea Surgical - Exam - General no distress, no pain - Eyes PERRL, normal ocular movement - ENT normal nares, normal mucosa - Respiratory normal expansion, normal respiratory effort - Psychiatric oriented to time, oriented to person, oriented to place Assessment and Plan Assessment: OR for left-sided ureteroscopy with holmium laser lithotripsy with stent removal vs exchange and a cystoitholapaxy
[~2021-07-30 05:55] MED LIST: DEXAMETHASONE SOD PHOSPHATE 4 MG/ML 1 ML VIAL IV ONE; ONDANSETRON 4 MG/2 ML VIAL IVP ONE
--- NOTE | 2021-07-30 06:26 | XR ---
EXAMINATION TYPE: XR KUB DATE OF EXAM: 07/30/2021 6:20 AM CLINICAL HISTORY: Left-sided kidney stone. Presurgical study. TECHNIQUE: Two supine KUB images of the abdomen are obtained. COMPARISON: CT abdomen and pelvis July 07, 2021. FINDINGS: New double-J left ureteral stent. Suspected stable 1.6 cm proximal left ureter calculus cristela ewhat faint on x-ray over the left L4 transverse process. Right-sided pelvic phleboliths redemonstrat ed. Overall nonobstructive bowel gas pattern. Spurring and disc space narrowing and early thoracolumbar j unction. Moderate axial joint space loss in both hips IMPRESSION: As above.
[2021-07-30] MEDS: LACTATED RINGERS 1,000 ML IV SCH ×2 (06:50→07:33)
[2021-07-30] MEDS ORDERED: HYDROmorphone 0.5 MG/0.5 ML SYRINGE IVP PRN (07:00)
[2021-07-30] MEDS ORDERED: KETOROLAC 15 MG/ML 1 ML VIAL ONE (07:34)
[2021-07-30] MEDS ORDERED: PROPOFOL 10 MG/ML 20 ML VIAL IV ONE (07:34)
[2021-07-30] MEDS ORDERED: LIDOCAINE 1% INJ 10MG/ML (20 ML MDV) ONE (07:34)
[2021-07-30] MEDS ORDERED: fentaNYL (PF) 50 MCG/ML 2 ML AMP ONE (07:34)
[2021-07-30] MEDS ORDERED: PHENYLEPHRINE-0.9% NACL SYG 1,000 MCG/10 ML SYRINGE ONE (07:34)
[2021-07-30] MEDS ORDERED: MIDAZOLAM 2 MG/2 ML VIAL ONE (07:34)
[2021-07-30] MEDS ORDERED: ePHEDrine 50 MG/ML 1 ML AMP ONE (07:34)
[2021-07-30] MEDS ORDERED: IOPAMIDOL-370 50ML BTL IRRIGATION ONE (08:19)
[2021-07-30] MEDS ORDERED: LACTATED RINGERS 1,000 ML IV ONE (08:20)
--- NOTE | 2021-07-30 09:44 | P.OP ---
Date of Procedure: 07/30/21 Preoperative Diagnosis: Bladder stone, left ureteral stone Postoperative Diagnosis: Same Procedure(s) Performed: Cystoscopy, cystolitholapaxy (<2.5 cm), left ureteroscopy, holmium laser lithotripsy, stone basketing and stent exchange Implants: 6-Pashto by 26 cm stent in the left ureter or left on a string Anesthesia: SELINA Surgeon: Archie Hummel Estimated Blood Loss (ml): 10 Pathology: other (Bladder stone, left ureteral stone) Condition: stable Disposition: PACU Indications for Procedure: This 76-year-old male with history of 2 left-sided proximal ureteral stones on the left side, He underwent left sided stent placement on 07/10, CT also showed a large bladder stone. He presents today for left-sided ureteroscopy and a cystoitholapaxy Discussed with him the risk and benefit of the procedure. He understood all the risk and agreed to proceed. Of note patient has passed one of his ureteral stones Operative Findings: Large stone within the bladder, a large stone within the left renal pelvis Description of Procedure: Patient was brought to the operating room, general anesthesia was induced. He was prepped and draped in sterile fashion a placement dorsal lithotomy position. Cystoscopy fitted with a 21-Pashto sheath was inserted per urethra. Cystoscopy was performed which showed a large stone within the bladder, measured smaller than 2 cm. Additionally the bladder was moderately trabeculated, there were multiple small tics. Patient's prostate was moderately enlarged, and there was no median lobe. Attention was then carried to the bladder stone which was fragmented using the holmium laser. All stone fragments were irrigated out. Attention was then carried to the left ureteral stone. Using the stent grasper the stent was grasped and removed to the meatus. Next a sensor wire was advanced through the stent and the stent was removed with the wire in place. Next a semirigid ureteroscope was advanced up the urethra and up the left ureteral orifice, I was able to advance the scope into the midureter but I was not able to advance it past that area secondary to a 45 turn within the ureter. Retrograde Pyelogram was performed through the ureteroscope which showed no filling defect along the course of the ureter. at this time a sensor wire was readvanced through the ureteroscope and the ureteroscope was withdrawn with the wire in place. I was able to straighten in the ureter using the wire. Next a ureteral access sheath was passed over the wire and into the proximal ureter. Next a flexible ureteroscope was advanced through the access sheath, renoscopy was performed which showed a large stone within the renal pelvis. The stone was dusted using the holmium laser. Sizable fragments were removed using the stone basket. Repeat renoscopy showed no injury to the kidney or sizable fragments. Pullback ureteroscopy was performed which showed no injury to the ureter or ureteral fragments. Given the size of the stone this decision was made to be exchange the stent. A sensor wire was advanced through the ureteroscope and the ureteroscope was withdrawn with the wire in place. Next ureteral stent was passed over the wire, the proximal curl was visualized on fluoroscopy and the distal curl was visualized using cystoscope. The stent was left on a string and taped the patient penis. Patient tolerated the procedure well taken to recovery in stable condition
--- NOTE | 2021-07-30 09:46 | FL ---
EXAMINATION TYPE: FL urography retrograde DATE OF EXAM: 07/30/2021 COMPARISON: NONE HISTORY: Fluoroscopy time. Fluoroscopy was provided to the referring clinician. 28 seconds provided.
[2021-07-30 09:49] VITALS: TEMP 97
[2021-07-30 10:03] VITALS: RESP 16
[2021-07-30 11:51] VITALS: BP 127/74; PULSE 85
== END 2021-07-30 12:25 | disposition home or self-care (01) ==
LOC: OR 05:55
PROVIDERS: ATTEND Urology
DX: N21.0 Calculus in bladder (principal); N20.1 Calculus of ureter; I10 Essential (primary) hypertension; G47.30 Sleep apnea, unspecified; Z87.442 Personal history of urinary calculi; Z96.0 Presence of urogenital implants; Z98.890 Other specified postprocedural states; Z97.2 Presence of dental prosthetic device (complete) (partial); Z82.49 Family history of ischemic heart disease and other diseases of the circulatory system; Z79.899 Other long term (current) drug therapy; Z91.011 Allergy to milk products
CPT/HCPCS: 82365; 74420; 74018; 52317; 52356; C2625; C1758; C1769 ×2; J2250; J1100; J0690; J2405; J2001; J3010; J1885; J2370; J2704; Q9967

== ENCOUNTER 2021-08-06 18:00 | Emergency (ER) | payer MEDICARE ==
[2021-08-06 19:53] LABS: Basophils # (A) 0.1 k/uL (0-0.2); Basophils % (A) 1 %; Eosinophils # (A) 0.3 k/uL (0-0.7); Eosinophils % (A) 2 %; HCT 45.6 % (39.0-53.0); HGB 15.2 gm/dL (13.0-17.5); Lymphocytes % (A) 27 %; MCH 30.7 pg (25.0-35.0); MCHC 33.2 g/dL (31.0-37.0); MCV 92.5 fL (80.0-100.0); Mean Platelet Volume 8.8; Monocytes # (A) 0.8 k/uL (0-1.0); Monocytes % (A) 5 %; Neutrophils # (A) 9.5 k/uL (1.3-7.7); Neutrophils % (A) 63 %; Platelet Count 155 k/uL (150-450); RBC 4.93 m/uL (4.30-5.90); RDW 13.1 % (11.5-15.5)
[2021-08-06 20:03] LABS: Albumin 4.1 g/dL (3.5-5.0); Total Bilirubin 0.5 mg/dL (0.2-1.3); Total Protein 6.6 g/dL (6.3-8.2)
[2021-08-06 20:21] LABS: Potassium 4.5 mmol/L (3.5-5.1)
[2021-08-06 21:18] VITALS: BP 150/82; PULSE 82; RESP 16; TEMP 99
[2021-08-06 21:28] LABS: Appearance,Urine Clear (Clear); Bilirubin,Urine Negative (Negative); Blood,Urine Small (Negative); Color,Urine Light Yellow; Glucose,Urine (UA) Negative (Negative); Ketones,Urine Negative (Negative); Leukocyte Esterase,Urine Small (Negative); Mucus,Urine Rare /hpf; Nitrite,Urine Negative (Negative); PH, Urine 5.5 (5.0-8.0); Protein,Urine 1+ (Negative); RBC,Urine 15 /hpf (0-5); Specific Gravity,Urine 1.009 (1.001-1.035); Urobilinogen,Urine <2.0 mg/dL (<2.0); WBC,Urine 14 /hpf (0-5)
[2021-08-06] MEDS ORDERED: LEVOFLOXACIN 750 MG TAB PO STA (21:50)
--- NOTE | 2021-08-06 22:34 | CT ---
EXAMINATION TYPE: CT abdomen pelvis wo con DATE OF EXAM: 08/06/2021 COMPARISON: 07/07/2021 HISTORY: LLQ pain CT DLP: 729 mGycm Automated exposure control for dose reduction was used. Images obtained from the diaphragm to the floor the pelvis with no contrast. There is elevated left diaphragm. There is atelectasis and infiltrate left lung base. There is no ple ural effusion. Heart size is normal. There is no pericardial effusion. Liver spleen pancreas appear intact. Bile ducts are not dilated. Gallbladder is intact. There is no adrenal mass. There is moderate left-sided hydronephrosis. There is obstructing there is 8mm calculus in the proximal left ureter. There is left side perinephric edema. There is small calcul i in the distal left ureter that measure up to 2 mm. There is no retroperitoneal adenopathy. Bladder distends smoothly. There is no inguinal hernia. There is no evidence of a pelvic mass. There is no inguinal hernia. There is no free fluid in the pelvis. There are multiple sigmoid diverticula. There is no diverticulitis. The lumbar vertebra have normal alignment. There is no compression fracture. Bony pelvis is intact. A ppendix appears normal. IMPRESSION: Large obstructing calculus proximal left ureter with left-sided hydronephrosis and extensive perineph daxa edema. Edema slightly increased compared to old exam calculus not changed in position. The previo us exam shows 2 calculi in the proximal left ureter but now there is just one. There has been apparen t fragmentation of the calculi with a small Steinstrasse in the distal left ureter.
--- NOTE | 2021-08-06 22:54 | ED ---
General Adult HPI - General Chief complaint: Back Pain/Injury Stated complaint: Post Op Kidney Stone Removal,Abd Pain Time Seen by Provider: 08/06/21 21:00 Source: patient Mode of arrival: ambulatory Limitations: no limitations - History of Present Illness Initial comments: 's patient is 76-year-old man presenting to be evaluated for left-sided flank pa in. The patient states that a week ago he had what sounds like laser lithotripsy and left ureteral stent laced minute with Dr. Hummel. The patient followed up earlier today and had the ureteral stent removed. Later in the afternoon a little after 4 PM he started experiencing left flank pain that he states was similar to what he had experienced before the procedure. The pain became severe so he presented here. He has not taken anything for the pain. He has not noted fever or chills. No change in urination noted. No change in bowel movements. -: hour(s) Location: left (Flank) Radiation: flank Quality: aching Consistency: colicky Improves with: none Worsens with: none Associated Symptoms: nausea/vomiting Treatments Prior to Arrival: none - Related Data Home Medications Medication Instructions Recorded Confirmed Simvastatin [Zocor] 40 mg PO HS 07/09/16 07/30/21 atenoloL [Tenormin] 25 mg PO DAILY 07/09/16 07/30/21 Brimonidine Tartrate [Alphagan P 1 drop LEFT EYE DAILY 07/07/21 07/30/21 0.2% Ophth Soln] Latanoprost/Pf [Latanoprost 0.005% 1 drop BOTH EYES DAILY 07/07/21 07/30/21 Eye Drop] Tamsulosin [Flomax] 0.4 mg PO W/SUPPER 07/07/21 07/30/21 Cranberry Fruit Extract [Cranberry] 8,400 mg PO DAILY 07/25/21 07/30/21 Loratadine [Claritin] 10 mg PO DAILY 07/25/21 07/30/21 Tart Ochoa 425 mg PO DAILY 07/25/21 07/30/21 Ubiquinol [Co-Veratrol] 50 mg PO DAILY 07/25/21 07/30/21 Previous Rx's Medication Instructions Recorded Ketorolac [Toradol] 10 mg PO Q6HR PRN #10 tab 07/08/21 Cephalexin [Keflex] 500 mg PO Q8HR #15 cap 07/30/21 Ketorolac [Toradol] 10 mg PO Q6HR PRN #15 tab 07/30/21 Ciprofloxacin HCl [Cipro] 500 mg PO Q12HR #14 tablet 08/06/21 HYDROcodone/APAP 5-325MG [Leupp 1 tab PO Q4HR PRN 3 Days #18 tab 08/06/21 5-325] Tamsulosin [Flomax] 0.4 mg PO DAILY #14 cap 08/06/21 Allergies Allergy/AdvReac Type Severity Reaction Status Date / Time milk AdvReac Nausea & Verified 08/06/21 19:22 Vomiting & Diarrhea Review of Systems ROS Statement: Those systems with pertinent positive or pertinent negative responses have been documented in the HPI. ROS Other: All systems not noted in ROS Statement are negative. Constitutional: Denies: fever, chills, weakness Respiratory: Denies: cough, dyspnea, wheezes Cardiovascular: Denies: chest pain, palpitations, orthopnea, edema Gastrointestinal: Reports: as per HPI, abdominal pain (Left flank pain), nausea. Denies: vomiting, diarrhea, constipation, melena, hematochezia Genitourinary: Denies: dysuria, frequency, hematuria, testicular pain, testicular mass Musculoskeletal: Denies: back pain Skin: Denies: rash Neurological: Denies: headache, weakness Past Medical History Past Medical History: Hypertension, Renal Disease Additional Past Medical History / Comment(s): kidney stones History of Any Multi-Drug Resistant Organisms: None Reported Past Surgical History: Back Surgery, Hernia Repair, Orthopedic Surgery, Tonsillectomy Additional Past Surgical History / Comment(s): bilateral renal stent placement and removal, bilat wrist reconstruction, carpal tunnel release Past Anesthesia/Blood Transfusion Reactions: No Reported Reaction Past Psychological History: No Psychological Hx Reported Smoking Status: Never smoker Past Alcohol Use History: None Reported Past Drug Use History: None Reported - Past Family History Father Family Medical History: CVA/TIA General Exam Limitations: no limitations General appearance: alert, in no apparent distress Head exam: Present: atraumatic, normocephalic Eye exam: Present: normal appearance. Absent: scleral icterus, conjunctival injection ENT exam: Present: normal oropharynx Neck exam: Present: normal inspection Respiratory exam: Present: normal lung sounds bilaterally. Absent: respiratory distress, wheezes, rales, rhonchi, stridor Cardiovascular Exam: Present: regular rate, normal rhythm, normal heart sounds. Absent: systolic murmur, diastolic murmur, rubs, gallop GI/Abdominal exam: Present: soft. Absent: distended, tenderness, guarding, rebound, rigid, mass Extremities exam: Present: normal inspection, normal capillary refill. Absent: pedal edema, calf tenderness Back exam: Present: normal inspection, CVA tenderness (L). Absent: CVA tenderness (R), vertebral tenderness Neurological exam: Present: alert Skin exam: Present: warm, dry, intact, normal color. Absent: rash Course Vital Signs 08/06/21 08/06/21 19:19 20:51 Temperature 99.4 F 99.0 F Pulse Rate 74 82 Respiratory 18 16 Rate Blood Pressure 156/73 150/82 O2 Sat by Pulse 97 98 Oximetry Medical Decision Making - Medical Decision Making This patient is a 76-year-old man here for left flank pain that he states is similar to what he was having prior to the ureteral stent. I he did have the stent removed today. The patient had labs and CT there consistent with left-si ded hydronephrosis. The renal function is normal. The patient did have subside and so the pain down to approximately half a what was and he declined analgesia here. The patient is given dose of antibiotic. No evidence of sepsis related to the stone. After further discussion the patient prefers to go home. He is counseled to have close follow-up, returning here should the symptoms recur. We discussed the degree of hydronephrosis accompanying and my concern that he does need to have the stent replaced. The patient will follow with Dr. Hummel in the morning, we discussed return parameters. - Lab Data Result diagrams: 08/06/21 19:41 08/06/21 19:41 Lab Results 08/06/21 08/06/21 08/06/21 Range/Units 19:41 19:41 21:17 WBC 15.0 H (3.8-10.6) k/uL RBC 4.93 (4.30-5.90) m/uL Hgb 15.2 (13.0-17.5) gm/dL Hct 45.6 (39.0-53.0) % MCV 92.5 (80.0-100.0) fL MCH 30.7 (25.0-35.0) pg MCHC 33.2 (31.0-37.0) g/dL RDW 13.1 (11.5-15.5) % Plt Count 155 (150-450) k/uL MPV 8.8 Neutrophils % 63 % Lymphocytes % 27 % Monocytes % 5 % Eosinophils % 2 % Basophils % 1 % Neutrophils # 9.5 H (1.3-7.7) k/uL Lymphocytes # 4.0 (1.0-4.8) k/uL Monocytes # 0.8 (0-1.0) k/uL Eosinophils # 0.3 (0-0.7) k/uL Basophils # 0.1 (0-0.2) k/uL Sodium 135 L (137-145) mmol/L Potassium 4.5 (3.5-5.1) mmol/L Chloride 102 (98-107) mmol/L Carbon Dioxide 22 (22-30) mmol/L Anion Gap 11 mmol/L BUN 20 (9-20) mg/dL Creatinine 1.19 (0.66-1.25) mg/dL Est GFR (CKD-EPI)AfAm 69 (>60 ml/min/1.73 sqM) Est GFR (CKD-EPI)NonAf 60 (>60 ml/min/1.73 sqM) Glucose 121 H (74-99) mg/dL Calcium 9.0 (8.4-10.2) mg/dL Total Bilirubin 0.5 (0.2-1.3) mg/dL AST 27 (17-59) U/L ALT 15 (4-49) U/L Alkaline Phosphatase 54 (38-126) U/L Total Protein 6.6 (6.3-8.2) g/dL Albumin 4.1 (3.5-5.0) g/dL Urine Color Light Yellow Urine Appearance Clear (Clear) Urine pH 5.5 (5.0-8.0) Ur Specific [place] 1.009 (1.001-1.035) Urine Protein 1+ H (Negative) Urine Glucose (UA) Negative (Negative) Urine Ketones Negative (Negative) Urine Blood Small H (Negative) Urine Nitrite Negative (Negative) Urine Bilirubin Negative (Negative) Urine Urobilinogen <2.0 (<2.0) mg/dL Ur Leukocyte Esterase Small H (Negative) Urine RBC 15 H (0-5) /hpf Urine WBC 14 H (0-5) /hpf Urine Mucus Rare H (None) /hpf Disposition Clinical Impression: Hydronephrosis, Ureterolithiasis Disposition: HOME SELF-CARE Condition: Fair Instructions (If sedation given, give patient instructions): Ureteral Stones (ED) Prescriptions: Ciprofloxacin HCl [Cipro] 500 mg PO Q12HR #14 tablet Tamsulosin [Flomax] 0.4 mg PO DAILY #14 cap HYDROcodone/APAP 5-325MG [Leupp 5-325] 1 tab PO Q4HR PRN 3 Days #18 tab PRN Reason: Pain Is patient prescribed a controlled substance at d/c from ED?: Yes When asked, does pt state using other controlled substances?: No If prescribed controlled substance>3 days was MAPS reviewed?: Prescribed <3 Days If opioid is for acute pain is fill amount 7 days or less?: Yes If Rx opioid, was Start Talking consent form obtained?: Yes Referrals: Jose Tuttle DO [Primary Care Provider] - 1-2 days Archie Hummel MD [STAFF PHYSICIAN] - 1-2 days
== END 2021-08-06 23:01 | disposition home or self-care (01) ==
LOC: EC 18:00
DX: N13.2 Hydronephrosis with renal and ureteral calculous obstruction (principal); I10 Essential (primary) hypertension; Z91.011 Allergy to milk products; Z79.899 Other long term (current) drug therapy
CPT/HCPCS: 36415; 74176; 80053; 81001; 85025; 87086; 99284

== ENCOUNTER → 2021-08-30 | Outpatient (CLI) | payer MEDICARE ==
--- NOTE | 2021-08-30 13:07 | US ---
EXAMINATION TYPE: US kidneys/renal and bladder DATE OF EXAM: 08/30/2021 COMPARISON: CT 2020 CLINICAL HISTORY: N20.0 CALCULUS OF KIDNEY LT. Follow up kidney stones EXAM MEASUREMENTS: Right Kidney: 10.3 x 4.8 x 4.8 cm Left Kidney: 10.8 x 4.9 x 4.7 cm Right Kidney: No hydronephrosis or masses seen Left Kidney: dilated renal pelvis Bladder: 1.9cm posterior diverticulum Bilateral Jets seen: no No nephrolithiasis is seen. No masses are identified. The urinary bladder is anechoic. Bilateral u reteral jets are seen. IMPRESSION: Mild left-sided hydronephrosis.
== END | disposition home or self-care (01) ==
LOC: RADUSWWP 11:51
PROVIDERS: ATTEND Urology
DX: N13.30 Unspecified hydronephrosis (principal)
CPT/HCPCS: 76770

== ENCOUNTER → 2021-09-03 | Outpatient (CLI) | payer MEDICARE | END | disposition home or self-care (01) | LOC: LABWHC1 12:03 | PROVIDERS: ATTEND Urology | DX: R97.20 Elevated prostate specific antigen [PSA] (principal) | CPT/HCPCS: 36415; 84153 ==

== ENCOUNTER 2025-04-04 09:38 | Day surgery (SDC) | payer MEDICARE ==
[~2025-04-04 09:38] MED LIST changes: +ALPRAZolam 0.25 MG TAB PO PRN; +ALPRAZolam 0.5 MG TAB PO PRN; -DEXAMETHASONE SOD PHOSPHATE 4 MG/ML 1 ML VIAL IV ONE; +HEPARIN SODIUM,PORCINE (1 ML) 2,500 UNIT in SODIUM CHLORIDE 0.9% 250 ML IRRIGATION PRN; +HEPARIN SODIUM,PORCINE 10,000 UNIT in SODIUM CHLORIDE 0.9% 1,000 ML IRRIGATION PRN; +NITROGLYCERIN SL TABS 0.4 MG TAB SUBLINGUAL PRN; -ONDANSETRON 4 MG/2 ML VIAL IVP ONE
[2025-04-04] MEDS: SODIUM CHLORIDE 0.9% 1,000 ML in EMPTY BAG 1 BAG IV SCH ×2 (10:30→14:06)
[2025-04-04] MEDS: ASPIRIN 325 MG TAB PO STA (10:31)
[2025-04-04] MEDS: IV FLUID CONTINUATION 1,000 ML IV ONE (10:31)
[2025-04-04 10:40] LABS: Basophils # (A) 0.10 10*3/uL (0.00-0.10); Basophils % (A) 0.4 %; Eosinophils # (A) 0.20 10*3/uL (0.04-0.35); Eosinophils % (A) 0.8 %; HCT 43.0 % (39.6-50.0); HGB 14.0 g/dL (13.0-17.0); Lymphocytes % (A) 69.3 %; MCH 30.4 pg (27.0-32.0); MCHC 32.6 g/dL (32.0-37.0); MCV 93.3 fL (80.0-97.0); Monocytes # (A) 0.89 10*3/uL (0.20-1.00); Monocytes % (A) 3.7 %; Neutrophils # (A) 6.21 10*3/uL (1.80-7.70); Neutrophils % (A) 25.6 %; Platelet Count 147 10*3/uL (140-440); RBC 4.61 10*6/uL (4.40-5.60); RDW 14.3 % (11.5-14.5); WBC 24.33 10*3/uL (4.50-10.00)
[2025-04-04 10:41] LABS: Lymphocytes # (A) 16.87 10*3/uL (0.90-5.00)
[2025-04-04 10:44] LABS: African American GFR (CKD) >90 (>60 ml/min/1.73 sqM); Anion Gap 10 mmol/L; Blood Urea Nitrogen 23 mg/dL (9-20); Calcium 9.2 mg/dL (8.4-10.2); Carbon Dioxide 25 mmol/L (22-30); Chloride 105 mmol/L (98-107); Glucose 95 mg/dL (74-99); Non-African American GFR(CKD) 80 (>60 ml/min/1.73 sqM); Sodium 140 mmol/L (137-145)
[2025-04-04 11:02] LABS: Potassium 4.5 mmol/L (3.5-5.1)
[2025-04-04] MEDS: LIDOCAINE 2% (PF) 20 MG/ML 10 ML AMP SQ ONE (11:50)
[2025-04-04] MEDS: fentaNYL (PF) 50 MCG/1 ML VIAL IVP ONE ×3 (11:50→12:06)
[2025-04-04] MEDS: MIDAZOLAM 2 MG/2 ML VIAL IVP ONE ×3 (11:50→12:05)
[2025-04-04] MEDS: VERAPAMIL 2.5 MG/ML 4 ML VIAL INTRAARTER ONE (11:52)
[2025-04-04] MEDS: HEPARIN SODIUM,PORCINE (1 ML) 2,500 UNIT in SODIUM CHLORIDE 0.9% 250 ML IRRIGATION ONE (11:56)
[2025-04-04] MEDS: HEPARIN SODIUM,PORCINE 10,000 UNIT in SODIUM CHLORIDE 0.9% 1,000 ML IRRIGATION ONE (11:56)
[2025-04-04] MEDS: HEPARIN SODIUM 1,000 UN/ML (10ML VL) IVP ONE ×3 (11:57→12:42)
[2025-04-04] MEDS: TICAGRELOR 90 MG TAB PO ONE (12:05)
[2025-04-04] MEDS: NITROGLYCERIN 1000MCG/10ML SYRINGE INTRACORON ONE (12:40)
[2025-04-04] MEDS: IOPAMIDOL-370 100ML BTL INTRATHECA ONE (12:44)
[2025-04-04] MEDS ORDERED: MAG HYDROX/AL HYDROX/SIMETH 30 ML CUP PO PRN (12:46)
[2025-04-04] MEDS ORDERED: ZOLPIDEM 5 MG TAB PO PRN (12:46)
[2025-04-04] MEDS ORDERED: RX INFO: IV CONTRAST WAS GIVEN 1 EACH MISC MISCELLANE PRN (12:46)
[2025-04-04] MEDS ORDERED: NITROGLYCERIN SL TABS 0.4 MG TAB SUBLINGUAL PRN (12:46)
[2025-04-04] MEDS ORDERED: ATROPINE SULFATE 0.1 MG/ML 10ML SYRINGE IV PRN (12:46)
--- NOTE | 2025-04-04 12:51 | P.PCN ---
Date of Procedure: 04/04/25 Operative Findings: CARDIAC CATHETERIZATION AND PERCUTANEOUS CORONARY INTERVENTION PERFORMING PHYSICIAN: Roberto Black MD, [facility] PROCEDURE PERFORMED: 1. Selective right and left coronary angiogram and left heart catheterization 2. Successful stenting of mid LAD using 3.5 x 23 mm Xience RAFAEL with an exce llent angiographic results 3. Adjunctive use of IVUS 4. Ultrasound-guided access of the right radial artery INDICATION: Symptomatic 79-year-old gentleman with abnormal stress test COMPLICATION: None APPROACH: Right radial artery LEVEL OF SEDATION: Moderate with the sedation time off 53 minutes PROCEDURE DESCRIPTION: After obtaining informed consent the patient was brought to the [facility]. The right radial artery was cannulated using micropuncture technique under ultrasound guidance a micropuncture wire passed easily then I placed a 6 [place] 11 cm sheath at the right radial artery and give the patient 2 mg of verapamil intra-arterial and 5000 units of heparin intravenous. Selective right and left coronary angiogram performed using JR4 and JL 3.5 catheters. Left heart cath eterization was performed using the JR4 catheter. After that I decided to intervene on the LAD. Anticoagulation continued using heparin and the patient was loaded with 180 Brilinta. After that I did engage the left main using JL 3.5 guiding catheter. I did wired using a run-through wire and the diagonal was wired using a whisper wire. PTCA ballooning of both the LAD and diagonal performed using 2.0 for the diagonal and 2.5 for the LAD. Subsequently I did balloon the LAD again using 3 mm NC balloon. After that I deployed a 3.5 x 23 mm Xience RAFAEL which was postdilated using 3.75 mm balloon with IVUS showing excellent results and angiogram showing excellent results. SELECTIVE CORONARY ANGIOGRAM: The right coronary artery: Medium caliber vessel nondominant vessel with critical disease involving the proximal to midportion Left main: Calcified with mild disease only The left circumflex: Large caliber vessel and a dominant vessel with no evidence of high-grade stenosis The left anterior descending artery: Has a critical lesion in the midportion. I did perform successful stenting of the LAD HEMODYNAMICS: The LVEDP was 10 mmHg with no significant gradient across aortic valve CONCLUSION: 1. Critical disease involving the mid LAD. I did successful PCI of the LAD as described above 2. Normal left-sided filling pressure POSTPROCEDURE MANAGEMENT: 1. Dual antiplatelet therapy using aspirin and. For 12 month 2. Aggressive cholesterol control 3. Follow-up with the patient
[2025-04-04] MEDS: LOSARTAN 50 MG TAB PO STA (20:35)
[2025-04-04] MEDS: GABAPENTIN 300 MG CAP PO SCH (20:36)
[2025-04-04] MEDS: TICAGRELOR 90 MG TAB PO SCH (21:27)
[2025-04-05 06:24] LABS: African American GFR (CKD) >90 (>60 ml/min/1.73 sqM); Non-African American GFR(CKD) 83 (>60 ml/min/1.73 sqM)
[2025-04-05 07:28] VITALS: BP 154/76; PULSE 68; TEMP 98
[2025-04-05 08:42] LABS: HCT 41.3 % (39.6-50.0); HGB 13.7 g/dL (13.0-17.0); MCH 30.6 pg (27.0-32.0); MCHC 33.2 g/dL (32.0-37.0); MCV 92.4 fL (80.0-97.0); Platelet Count 116 10*3/uL (140-440); RBC 4.47 10*6/uL (4.40-5.60); RDW 13.8 % (11.5-14.5); WBC 18.59 10*3/uL (4.50-10.00)
[2025-04-05] MEDS: MULTIVITAMINS, THERA 1 EACH TAB PO SCH (08:47)
[2025-04-05] MEDS: ATORVASTATIN 40 MG TAB PO SCH (08:47)
[2025-04-05] MEDS: ASPIRIN 81 MG PO SCH (08:48)
[2025-04-05] MEDS: LORATADINE 10 MG TAB PO SCH (08:48)
[2025-04-05] MEDS ORDERED: LOSARTAN 50 MG TAB PO SCH ×2 (09:00→21:00)
[2025-04-05] MEDS ORDERED: UBIQUINOL 100 MG PO SCH (09:00)
[2025-04-05 10:02] LABS: Eosinophils # (M) 0.19 k/uL (0-0.7); Lymphocytes # (M) 14.69 k/uL (1.0-4.8); Monocytes # (M) 0.93 k/uL (0-1.0); Neutrophils # (M) 2.79 k/uL (1.3-7.7); Neutrophils % (M) 15 %; Total Cells Counted 100
[2025-04-05 10:13] VITALS: RESP 18
--- NOTE | 2025-04-05 11:37 | P.CRDCN ---
History of Present Illness History of present illness: This is a 79-year-old male who underwent cardiac catheterization yesterday with Dr. Black with stenting of the mid LAD. Patient is doing well post procedure with no complications noted. Right radial access site soft with no hematoma noted. Pulse present. Patient without complaints of chest pain or shortness of breath. Patient was deemed stable for discharge home today from a cardiac standpoint Patient will be discharged home on dual antiplatelet therapy with aspirin and Brilinta for 12 months. Continue high intensity statin with LDL goal less than 70. Please see EMR for further hospital course details. Discharge diagnosis Coronary artery disease status post PCI of the mid LAD Nurse practitioner note has been reviewed by physician. Signing provider agrees with the documented findings, assessment, and plan of care documented by [employer] as a scribe. Past Medical History Past Medical History: Cancer, Hyperlipidemia, Hypertension, Renal Disease Additional Past Medical History / Comment(s): kidney stones, gout,skin cancers removed History of Any Multi-Drug Resistant Organisms: None Reported Past Surgical History: Back Surgery, Hernia Repair, Orthopedic Surgery, Tonsillectomy Additional Past Surgical History / Comment(s): bilateral renal stent placement and removal, bilat wrist reconstruction, carpal tunnel release, colonsocopy Past Anesthesia/Blood Transfusion Reactions: No Reported Reaction Past Psychological History: No Psychological Hx Reported Smoking Status: Never smoker Past Alcohol Use History: None Reported Past Drug Use History: None Reported - Past Family History Father Family Medical History: CVA/TIA Medications and Allergies Home Medications Medication Instructions Recorded Confirmed Type atenoloL [Tenormin] 50 mg PO DAILY 07/09/16 04/04/25 History Loratadine [Claritin] 10 mg PO DAILY 07/25/21 04/04/25 History Ubiquinol [Co-Veratrol] 50 mg PO DAILY 07/25/21 04/04/25 History Gabapentin 300 mg PO HS 03/31/25 04/04/25 History Losartan Potassium 100 mg PO DAILY 03/31/25 04/04/25 History Multivitamins, Thera [Multivitamin 1 tab PO DAILY 03/31/25 04/04/25 History (formulary)] Rosuvastatin [Crestor] 20 mg PO DAILY 03/31/25 04/04/25 History allopurinoL 300 mg PO DAILY 03/31/25 04/04/25 History Aspirin 81 mg PO DAILY #90 tab 04/05/25 Rx Ticagrelor [Brilinta] 90 mg PO BID #90 tab 04/05/25 Rx Allergies Allergy/AdvReac Type Severity Reaction Status Date / Time milk AdvReac Nausea & Verified 04/04/25 10:23 Vomiting & Diarrhea Physical Exam Vitals: Vital Signs Temp Pulse Pulse Resp BP BP Pulse Ox 04/05/25 10:12 18 04/05/25 07:00 98.0 F 68 16 154/76 95 04/05/25 01:52 97.7 F 71 18 138/74 96 04/05/25 01:32 18 04/04/25 20:00 98.2 F 68 18 156/82 96 04/04/25 17:58 60 170/71 04/04/25 17:12 97.5 F L 59 L 18 164/77 97 04/04/25 17:00 60 16 143/75 98 04/04/25 16:45 56 L 16 147/74 98 04/04/25 15:45 58 L 18 137/69 97 04/04/25 14:45 60 18 127/68 97 04/04/25 14:15 61 18 130/80 97 04/04/25 13:45 61 18 131/68 97 04/04/25 13:30 60 16 124/72 98 04/04/25 13:15 63 18 130/70 97 04/04/25 13:00 60 18 128/60 98 Intake and Output 04/04/25 04/05/25 04/05/25 22:59 06:59 14:59 Intake Total 300 118 Balance 300 118 Intake: IV 300 Oral 118 Other: Voiding Method Toilet Toilet Toilet # Voids 2 2 Weight 76.6 kg Results 04/05/25 08:23 04/05/25 05:31 CBC 04/05/25 Range/Units 08:23 WBC 18.59 H (4.50-10.00) 10*3/uL RBC 4.47 (4.40-5.60) 10*6/uL Hgb 13.7 (13.0-17.0) g/dL Hct 41.3 (39.6-50.0) % Plt Count 116 L (140-440) 10*3/uL Comprehensive Metabolic Panel 04/05/25 Range/Units 05:31 Creatinine 0.86 (0.66-1.25) mg/dL Intake and Output 04/04/25 04/05/25 04/05/25 22:59 06:59 14:59 Intake Total 300 118 Balance 300 118 Intake: IV 300 Oral 118 Other: Voiding Method Toilet Toilet Toilet # Voids 2 2 Weight 76.6 kg 04/05/25 08:23 04/05/25 05:31
== END 2025-04-05 09:45 | disposition home or self-care (01) ==
LOC: CATHCVL 09:38 → 6NMEDSUR 12:44 → CATHCVL 04-05 09:45
PROVIDERS: ATTEND Internal Medicine Interventional Cardiology
DX: I25.10 Atherosclerotic heart disease of native coronary artery without angina pectoris (principal); I10 Essential (primary) hypertension; E78.5 Hyperlipidemia, unspecified; G47.33 Obstructive sleep apnea (adult) (pediatric); Z79.02 Long term (current) use of antithrombotics/antiplatelets; Z79.82 Long term (current) use of aspirin; Z85.828 Personal history of other malignant neoplasm of skin; Z99.89 Dependence on other enabling machines and devices; Z79.899 Other long term (current) drug therapy
CPT/HCPCS: 92978; 93458; 92921; 80048; 82565; 85025 ×2; 99152; 99153; C9600; C1769 ×4; C1894; C1725 ×5; C1753; C1874; J2250; J1644 ×3; J2003; Q9967; J3010; J2305